=== PATIENT | female | born 1990 | race Caucasian/White ===

== ENCOUNTER 2016-05-29 16:16 | Emergency (ER) | payer BC, OTHER ==
[2016-05-29 16:20] VITALS: BP 135/95
[2016-05-29] MEDS ORDERED: ACETAMINOPHEN 325 MG TABLET PO ONE (16:24)
--- NOTE | 2016-05-29 16:24 | ER Document Report ---
ED Medical Screen (RME) - General Stated Complaint: CHEST PAIN Mode of Arrival: Ambulatory Information source: Patient Notes: Patient complains of a heaviness to left-sided chest area. Patient denies any cough or cold symptoms. Patient is concerned she may be having some anxiety due to increased stress. 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 A comprehensive ED assessment and evaluation of the patient, analysis of test results and completion of the medical decision making process will be conducted by additional ED providers. TRAVEL OUTSIDE OF THE [place] IN LAST 30 DAYS: No - Related Data Allergies/Adverse Reactions: No Known Allergies Allergy (Verified 05/29/16 16:21) Past Medical History - Past Medical History Cardiac Medical History: Reports: Hx Heart Murmur - Patient unaware what type of heart murmur she had fixed as an . Denies: Hx Heart Attack, Hx Hypertension Pulmonary Medical History: Reports: Hx Asthma - no meds Neurological Medical History: Denies: Hx Cerebrovascular Accident, Hx Seizures GI Medical History: Denies: Hx Hepatitis, Hx Hiatal Hernia, Hx Ulcer Infectious Medical History: Denies: Hx Hepatitis Past Surgical History: Reports: Hx Open Heart Surgery - as closed hole in heart, Hx Tonsillectomy. Denies: Hx Mastectomy, Hx Pacemaker Physical Exam - Vital signs Vitals: Temp Pulse Resp BP Pulse Ox 98.4 F 82 16 135/95 H 100 05/29/16 16:19 05/29/16 16:19 05/29/16 16:19 05/29/16 16:19 05/29/16 16:19 - Cardiovascular Rhythm: Regular Heart sounds: S1 appreciated, S2 appreciated Course - Vital Signs Vital signs: Temp Pulse Resp BP Pulse Ox 98.4 F 82 16 135/95 H 100 05/29/16 16:19 05/29/16 16:19 05/29/16 16:19 05/29/16 16:19 05/29/16 16:19
--- NOTE | 2016-05-29 18:04 | EKG REPORT ---
SEVERITY:- OTHERWISE NORMAL ECG - SINUS ARRHYTHMIA, RATE 57-78 : Confirmed by: Rajani Hinojosa MD 29-May-2016 18:03:48
--- NOTE | 2016-05-29 18:43 | ER Document Report ---
ED General - General Time seen by provider: 18:45 Mode of Arrival: Ambulatory Information source: Patient TRAVEL OUTSIDE OF THE [place] IN LAST 30 DAYS: No - HPI Onset: Other - see HPI note <SHYAM KELLEY - Last Filed: 05/29/16 20:05> <RIDDHI PHAM - Last Filed: 05/29/16 21:08> - General Chief Complaint: Chest Pain Stated Complaint: CHEST PAIN Notes: Patient is a 25 year old female presenting to the emergency department with complaints of chest wall pain on the left side. Patient states that she has had this pain for 1 week and denies any injury or trauma to the area. Patient is concerned that she has some anxiety or stress relating to the pain. Patient states she feels like her "left boob is heavy." Patient has reproducible pain on the left side that is exacerbated with movement and deep breathing. Patient states that when it was hurting most she was breathing fast. 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 Patient has a history of ASD and a murmur when she was younger. Patient states she was also born with only 1 kidney. Patient is right handed. Patient has no known allergies. (SHYAM KELLEY) - Related Data Allergies/Adverse Reactions: No Known Allergies Allergy (Verified 05/29/16 16:21) Past Medical History - General Information source: Patient - Social History Smoking Status: Never Smoker Cigarette use (# per day): No Chew tobacco use (# tins/day): No Frequency of alcohol use: Rare Drug Abuse: None Family History: None Patient has suicidal ideation: No Patient has homicidal ideation: No - Past Medical History Cardiac Medical History: Reports: Hx Heart Murmur - Patient unaware what type of heart murmur she had fixed as an infant. Pulmonary Medical History: Reports: Hx Asthma - no meds Past Surgical History: Reports: Hx Open Heart Surgery - as closed hole in heart, Hx Tonsillectomy <SHYAM KELLEY - Last Filed: 05/29/16 20:05> Review of Systems - Review of Systems Constitutional: No symptoms reported EENT: No symptoms reported Cardiovascular: See HPI, Chest pain Respiratory: No symptoms reported Gastrointestinal: No symptoms reported Genitourinary: No symptoms reported Female Genitourinary: No symptoms reported Musculoskeletal: No symptoms reported Skin: No symptoms reported Hematologic/Lymphatic: No symptoms reported Neurological/Psychological: See HPI, Anxiety -: Yes All other systems reviewed and negative <SHYAM KELLEY - Last Filed: 05/29/16 20:05> Physical Exam - Vital signs Interpretation: Normal - General General appearance: Appears well, Alert In distress: Mild - HEENT Head: Normocephalic, Atraumatic Eyes: Normal Pupils: PERRL Mucous membranes: Moist - Respiratory Respiratory status: No respiratory distress Chest status: Tender - left chest wall tenderness to palpation as well as tenderness to the left pectoralis Breath sounds: Normal Chest palpation: Normal - Cardiovascular Rhythm: Regular Heart sounds: Normal auscultation Murmur: No - Abdominal Inspection: Normal Distension: No distension Bowel sounds: Normal Tenderness: Nontender Organomegaly: No organomegaly - Back Back: Normal, Nontender - Extremities General upper extremity: Normal inspection, Normal ROM, Normal strength General lower extremity: Normal inspection, Normal ROM, Normal strength - Neurological Neuro grossly intact: Yes Cognition: Normal Orientation: AAOx4 Gó[place] Coma Scale Eye Opening: Spontaneous [place] Coma Scale Verbal: Oriented [place] Coma Scale Motor: Obeys Commands [place] Coma Scale Total: 15 Speech: Normal - Psychological Associated symptoms: Normal affect, Normal mood - Skin Skin Temperature: Warm Skin Moisture: Dry <ALLIESHYAM - Last Filed: 05/29/16 20:05> Course <ALLIESHYAM - Last Filed: 05/29/16 20:05> - Diagnostic Test Radiology reviewed: Reports reviewed - EKG Interpretation by Mo EKG shows normal: Sinus rhythm Rate: Normal Rhythm: NSR <RIDDHI PHAM - Last Filed: 05/29/16 21:08> - Re-evaluation Re-evalutation: 05/29/16 Patient with no acute findings on chest x-ray or EKG. Reproducible chest wall tenderness to palpation. Patient is particularly tender along her left pectoralis. Patient will be discharged home. She has been under a lot of stress lately. She'll be given Vistaril to take for anxiety when necessary. Stable for discharge. Return immediately if any worsening or concerning symptoms. Understands and agrees with plan. (RIDDHI PHAM) - Vital Signs Vital signs: Temp Pulse Resp BP Pulse Ox 98.4 F 80 20 135/95 H 98 05/29/16 16:19 05/29/16 19:38 05/29/16 19:38 05/29/16 16:19 05/29/16 19:38 (SHYAM KELLEY) (RIDDHI PHAM) Discharge <SHYAM KELLEY - Last Filed: 05/29/16 20:05> <RIDDHI PHAM - Last Filed: 05/29/16 21:08> - Discharge Clinical Impression: Chest wall pain, Anxiety Condition: Stable Disposition: HOME, SELF-CARE Instructions: Chest Wall Pain ([facility]), Anxiety ([facility]) Prescriptions: Hydroxyzine Pamoate [Vistaril 25 mg Capsule] 25 mg PO BIDP PRN #14 capsule PRN Reason: Forms: Return to Work Referrals: LUCILLE EDOUARD MD [Primary Care Provider] - Follow up as needed Scribe Attestation: 05/29/16 21:08 I personally performed the services described in the documentation, reviewed and edited the documentation which was dictated to the scribe in my presence, and it accurately records my words and actions. (RIDDHI PHAM) Scribe Documentation - Scribe Written by Scribjeremias:: Shyam Kelley 05/29/16 20:13 acting as scribe for :: David <SHYAM KELLEY - Last Filed: 05/29/16 20:05>
[2016-05-29] MEDS ORDERED: HYDROXYZINE PAMOATE 25 MG CAPSULE PO ONE (18:57)
== END 2016-05-29 19:38 | disposition home or self-care (01) ==
LOC: ER 16:16
DX: R07.89 Other chest pain (principal); F41.9 Anxiety disorder, unspecified; N64.59 Other signs and symptoms in breast; Q60.0 Renal agenesis, unilateral; J45.909 Unspecified asthma, uncomplicated
CPT/HCPCS: 71020; 93005; 93010; 99285